=== PATIENT | female | born 1975 | race Caucasian/White ===

== ENCOUNTER 2019-10-08 15:04 | Emergency (ER) | payer BC ==
[2019-10-08 16:37] LABS: #Basophils 0.1 thou/uL (0.0-0.2); #Eosinphils 0.2 thou/uL (0.0-0.7); #Lymphocytes 1.4 thou/uL (1.20-3.40); #Monocytes 0.5 thou/uL (0.11-0.59); #Neutrophils 10.1 thou/uL (1.40-6.50); %Basophils 0.6 % (0.0-1.0); %Eosinophils 1.4 % (0.0-10.0); %Lymphocytes 11.4 % (21.0-51.0); %Monocytes 4.1 % (0.0-10.0); %Neutrophils 82.5 % (42.0-75.0); Hemoglobin 14.6 g/dL (12.0-16.0); Mean Corpuscular HGB CONC 33.6 g/dL (32.0-36.0); Mean Corpuscular Hemoglobin 30.9 pg (27.0-31.0); Mean Corpuscular Volume 91.9 fL (78.0-98.0); Mean Platelet Volume 8.2 fL (7.4-10.4); Platelet Count 280 thou/uL (130-400); Red Blood Cell (RBC) Count 4.74 mill/uL (4.20-5.40); White Blood Cell (WBC) Count 12.3 thou/uL (4.8-10.8)
[2019-10-08 17:00] LABS: ALT (SGPT) 60 U/L (8-55); AST (SGOT) 40 U/L (5-34); Alkaline Phosphatase 103 U/L (40-110); Anion Gap 9 mmol/L (10-20); BUN (Urea Nitrogen) 14 mg/dL (7.0-18.7); Bilirubin, Total 0.3 mg/dL (0.2-1.2); Calc. Creatinine Clearance 0 mL/min (70-130); Calcium 9.8 mg/dL (7.8-10.44); Carbon Dioxide 35 mmol/L (22-29); Chloride 102 mmol/L (98-107); Estimated GFR-MDRD 77; Globulin 2.5 g/dL (2.4-3.5); Glucose 99 mg/dL (70-105); Potassium 3.9 mmol/L (3.5-5.1); Protein, Total 7.5 g/dL (6.0-8.3); Sodium 142 mmol/L (136-145)
[2019-10-08] MEDS ORDERED: Clindamycin/D5W 900 mg/50 ml Premix Bag ONE (17:18)
[2019-10-08] MEDS ORDERED: Ketorolac Tromethamine 30 MG/ML VIAL ONE (17:18)
--- NOTE | 2019-10-08 17:19 | CT ---
CT FACIAL BONES WITH IV CONTRAST: HISTORY: Prosthetic left TMJ joint swelling and pain. Facial swelling FINDINGS: There are postop changes of bilateral TMJ replacement in good position and alignment. The facial bone s are otherwise intact. The visualized paranasal sinuses and mastoid air cells are well-aerated. No air-fluid levels are seen. No loculated fluid collection is seen in the soft tissues to suggest absce ss formation. IMPRESSION: No evidence of acute process.
[2019-10-08] MEDS ORDERED: Fentanyl 100 MCG/2 ML VIAL ONE (18:06)
[2019-10-08] MEDS ORDERED: Lorazepam 2 MG/ML VIAL ONE (18:06)
== END 2019-10-08 18:45 | disposition home or self-care (01) ==
LOC: ERS 15:04
DX: T84.098A Other mechanical complication of other internal joint prosthesis, initial encounter (principal); R22.0 Localized swelling, mass and lump, head
CPT/HCPCS: 70487; 80053; 85025; 85652; 86140; 96361; 96374; 96375; J1885; J2060; J3010; J3490

== ENCOUNTER 2019-10-09 18:30 | Observation (INO) | payer BC ==
[~2019-10-09 18:30] MED LIST: Iopamidol 370 76% 100 ML VIAL ONE
[2019-10-09 19:16] LABS: #Basophils 0.1 thou/uL (0.0-0.2); #Eosinphils 0.2 thou/uL (0.0-0.7); #Lymphocytes 1.7 thou/uL (1.20-3.40); #Monocytes 0.7 thou/uL (0.11-0.59); #Neutrophils 8.7 thou/uL (1.40-6.50); %Basophils 0.8 % (0.0-1.0); %Eosinophils 2.1 % (0.0-10.0); %Lymphocytes 14.9 % (21.0-51.0); %Monocytes 5.9 % (0.0-10.0); %Neutrophils 76.2 % (42.0-75.0); Hemoglobin 12.9 g/dL (12.0-16.0); Mean Corpuscular HGB CONC 32.8 g/dL (32.0-36.0); Mean Corpuscular Hemoglobin 30.4 pg (27.0-31.0); Mean Corpuscular Volume 92.5 fL (78.0-98.0); Mean Platelet Volume 8.1 fL (7.4-10.4); Platelet Count 251 thou/uL (130-400); RBC Distribution Width 11.2 % (11.5-14.5); Red Blood Cell (RBC) Count 4.24 mill/uL (4.20-5.40); White Blood Cell (WBC) Count 11.4 thou/uL (4.8-10.8)
[2019-10-09 19:38] LABS: ALT (SGPT) 43 U/L (8-55); AST (SGOT) 27 U/L (5-34); Albumin 4.5 g/dL (3.5-5.0); Alkaline Phosphatase 89 U/L (40-110); Anion Gap 11 mmol/L (10-20); BUN (Urea Nitrogen) 15 mg/dL (7.0-18.7); Bilirubin, Total 0.2 mg/dL (0.2-1.2); Calc. Creatinine Clearance 0 mL/min (70-130); Calcium 8.7 mg/dL (7.8-10.44); Carbon Dioxide 29 mmol/L (22-29); Chloride 103 mmol/L (98-107); Estimated GFR-MDRD 75; Globulin 2.8 g/dL (2.4-3.5); Glucose 85 mg/dL (70-105); Potassium 3.6 mmol/L (3.5-5.1); Protein, Total 7.3 g/dL (6.0-8.3); Sodium 139 mmol/L (136-145)
[2019-10-09] MEDS ORDERED: Ketorolac Tromethamine 30 MG/ML VIAL ONE (19:47)
[2019-10-09] MEDS ORDERED: Fentanyl 100 MCG/2 ML VIAL ONE ×2 (19:47→21:39)
[2019-10-09] MEDS ORDERED: Lorazepam 2 MG/ML VIAL ONE (20:58)
--- NOTE | 2019-10-09 21:39 | CT ---
CT neck with contrast: DATE: 10/09/2019 Time: 9:14 PM HISTORY: 44-year-old female with left jaw pain and swelling. Rule out abscess. FINDINGS: Bilateral metallic plates and screws throughout the bilateral mandibular rami and angles, attached to metallic prostheses replacing the bilateral mandibular condyles. Metallic artificial surfaces of bilateral glenoid fossa attached to plate and screw fixations at bilateral posterior zygomatic arches . This metallic hardware, together with dental amalgam, causes streak artifact, partially obscuring adj acent soft tissues, including portions of the bilateral parotid, overnight houseperson, and buccal, spaces, such that small abscesses could be missed. Furthermore, it is not possible to evaluate bony detail be cause of the hardware. No moderate sized or large abscess is identified. There is soft tissue edema throughout the superficial subcutaneous fat overlying the left masseter muscle, extending along the l eft platysma muscle and deep to the left platysma muscle. Other than mild edema, there is no other abnormality identified involving the parapharyngeal, submandibular, visceral, carotid, retropharyngea l, and posterior cervical, spaces. No significant cervical lymphadenopathy. Lung apices demonstrate no consolidation. Bilateral palatine tonsils are symmetrically enlarged. Normal larynx and thyroid gl and. Normal trachea. IMPRESSION: 1. 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 2. This causes significant streak artifact, limiting the sensitivity of the CT. 3. Soft tissue edema involving superficial and deep soft tissues, mostly on the left side. This could represent cellulitis. 4. No moderate sized or large abscess identified. 5. Hyperplasia of bilateral palatine tonsils..
[2019-10-09] MEDS ORDERED: Ampicillin/Sulbactam 3 GM, Admixture Fee 1 EACH in Sodium Chloride 0.9% 100 ML IVPB SCH (22:45)
--- NOTE | 2019-10-09 23:16 | PDOC.FPRHP ---
- History of Present Illness Chief Complaint: jaw pain History of Present Illness: Ms. Suresh is a 44yoF who presents to the second time in 2 days to the ED for left jaw pain. The pain started on Sunday. The pain came on suddenly and was significantly worsened with chewing, stating that chewing was sending electrical shocks. She noted that her jaw began swelling. She states it is painful to open her mouth as well. She has tried her home norco and it has not relieved her pain. She has a significant history of TMJ. She has had bilateral jaw replacements with several surgeries on each side. However, she has never had an infection in her jaw like this before. ED Course: Unasyn, fentanyl, toradol, 1L NS - Allergies/Adverse Reactions Allergies Allergy/AdvReac Type Severity Reaction Status Date / Time erythromycin base Allergy Verified 10/10/19 01:16 morphine Allergy Verified 10/10/19 01:16 promethazine [From Phenergan] Allergy Verified 10/10/19 01:16 - Home Medications Medication Instructions Recorded Confirmed Type Diclofenac Sodium 50 mg PO BID 10/09/19 10/09/19 History HYDROcodone/Acetaminophen [[place] 1 each PO Q6HR PRN 10/09/19 10/09/19 History 10-325 Tablet] Ibuprofen [Motrin] 800 mg PO TID 10/09/19 10/09/19 History Zolpidem Tartrate [Ambien] 2 tab PO HS 10/09/19 10/10/19 History - History PMHx: TMJ PSHx: Bilateral jaw replacement (started in late ) ([facility] [place] Laure Peck, [facility] [place]) Bilateral hip replacements - has had 6 hip surgeries FHx: Adopted - no known family history Social: Denies alcohol, tobacco or illicit drug use. - Review of Systems General: denies: fever/chills, weight/appetite/sleep changes, night sweats, fatigue Eyes: denies: eye pain, vision changes ENT: denies: nasal congestion, rhinorrhea Respiratory: denies: cough, congestion, shortness of breath Cardiovascular: denies: chest pain, palpitation, edema Gastrointestinal: denies: nausea, vomiting, diarrhea, constipation, abdominal pain Genitourinary: denies: incontinence, dysuria, polyuria Skin: denies: rashes, lesions, jaundice Musculoskeletal: reports: pain, tenderness, swelling (jaw) Neurological: denies: numbness, syncope, seizure, weakness - Vital signs 10/10/19 01:00 Temperature 98.1 F Pulse Rate 79 Blood Pressure 115/78 [Supine] Respiratory 18 Rate O2 Sat by Pulse 100 Oximetry Oxygen Delivery Room Air Method - Physical Exam Constitutional: NAD, awake, alert and oriented, well developed HEENT: normocephalic and atraumatic, PERRLA, EOMI, conjunctiva clear, grossly normal vision, grossly normal hearing, MMM Neck: supple, trachea midline Heart: RRR, normal S1/S2, no murmurs/rubs/gallops Lungs: CTAB, no respiratory distress, good air movement, no rales/rhonchi, no wheezing Abdomen: soft, non-tender, bowel sounds present Musculoskeletal: normal structure, normal tone Neurological: no focal deficit, CN II-XII intact Skin: good turgor, capillary refill <2 seconds -Skin: Prominent area of erythema and warmth to the left side of face and mandible. Heme/Lymphatic: no unusual bruising or bleeding, no purpura, no petechia Psychiatric: normal mood and affect, good judgment and insight, intact recent and remote memory FMR H&P: Results - Labs Result Diagrams: 10/10/19 05:08 10/10/19 05:08 Lab results: WBC 11.4 thou/uL (4.8-10.8) H 10/09/19 19:00 Hgb 12.9 g/dL (12.0-16.0) 10/09/19 19:00 Hct 39.2 % (36.0-47.0) 10/09/19 19:00 MCV 92.5 fL (78.0-98.0) 10/09/19 19:00 Plt Count 251 thou/uL (130-400) 10/09/19 19:00 Neutrophils % 76.2 % (42.0-75.0) H 10/09/19 19:00 Sodium 139 mmol/L (136-145) 10/09/19 19:00 Potassium 3.6 mmol/L (3.5-5.1) 10/09/19 19:00 Chloride 103 mmol/L (98-107) 10/09/19 19:00 Carbon Dioxide 29 mmol/L (22-29) 10/09/19 19:00 BUN 15 mg/dL (7.0-18.7) 10/09/19 19:00 Creatinine 0.82 mg/dL (0.6-1.1) 10/09/19 19:00 Glucose 85 mg/dL (70-105) 10/09/19 19:00 Calcium 8.7 mg/dL (7.8-10.44) 10/09/19 19:00 Total Bilirubin 0.2 mg/dL (0.2-1.2) 10/09/19 19:00 AST 27 U/L (5-34) 10/09/19 19:00 ALT 43 U/L (8-55) 10/09/19 19:00 Alkaline Phosphatase 89 U/L (40-110) 10/09/19 19:00 Serum Total Protein 7.3 g/dL (6.0-8.3) 10/09/19 19:00 Albumin 4.5 g/dL (3.5-5.0) 10/09/19 19:00 - Radiology Interpretation CT scan - head Status: report reviewed by me (IMPRESSION: 1. 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 2. This causes significant streak artifact, limiting the sensitivity of the CT. 3. Soft tissue edema involving superficial and deep soft tissues, mostly on the left side. This could represent cellulitis. 4. No moderate sized or large abscess identified. 5. Hyperplasia of bilateral palatine tonsils..) FMR H&P: A/P - Plan Facial cellulitis - h/o TMJ joint replacement surgery bilaterally. - WBC 11.4 - CT limited by hardware, no large abscess appreciable - Was given Unasyn in the ED. The pharmacy is out of this antibiotic, we will continue coverage with Zosyn until further recommendations by OMFS are made. - ED consulted ENT electronic test technician and they recommended - Soft tissue US ordered Chronic pain - On norco at home - Allergic to morphine - Fentanyl and Toradol for pain control overnight Fluids: NS 125ml/hr Code: Full VTE PPx: SCDs Dispo: inpatient, LOS >48hrs expected FMR H&P: Upper Level - Plan Date/Time: 10/09/19 9532 PCP: [facility] HPI: This is a 44 yo F who comes in to the ED for the 2nd time for L sided facial swelling. She says this started about 2 days ago and has gotten increasingly painful. She is still able to tolerate PO but she states opening her mouth does cause her to have increased pain. She has had chills, but denies fevers. She has tried her norco at home but this has not helped with the pain. She denies sore throat, difficulty swallowing, or changes to her voice. She denies neck stiffness. She has had multiple surgeries on the TMJ bilaterally, with her OMFS surgeon Dr. Peck in [place]. REVIEW OF SYSTEMS: Gen: see hpi Neuro: denies headache Eyes: no visual changes ENT: see hpi Resp: denies cough, SOB Card: denies murmurs, rubs, gallups GI: no N/V/D, no abdominal pain Heme: no easy bruising/bleeding, no blood thinners Skin: no rash, no erythema PHYSICAL EXAMINATION: General: NAD, alert and oriented x3 HEENT: 5x5 area of induration at angle of L jawline, no isaias erythema, mild tenderness to palpation, warm to touch, patient able to open her mouth 5-6cm, no tonsillar hypertrophy appreciated on physical exam but difficult to examine Neck: Supple. Full ROM. Heart/Cardiovascular System: RRR, Cap refill < 3 seconds, no rub, no murmur Lungs/Respiratory System: CTA-B, no resp distress Abdomen/Gastro-Intestinal System: no abdominal tenderness, normal bowel sounds Extremities: Warm extremities. No cyanosis or edema Neuro: No gross deficits appreciated. CN 2-12 grossly intact Psychiatry: Awake, Alert and cooperative with exam Skin: No lesions, rashes, or ulcers Musculoskeletal: Full ROM A/P: # L facial cellulitis s/p TMJ replacement - WBC 11.4, CT scan limited by hardware, no moderate/large abscess, small abscess cannot be ruled out - Hospital out of Unasyn, will cont with Zosyn - Soft tissue US ordered - ENT called by ED, recd abx and pain control, appreciate ENT recs # Chronic pain - On norco at home - Allergic to morphine, will give toradol and fentanyl for now Fluids: NS 125ml/hr Code status: full PPx: scd Dispo: inpatient Addendum - Attending - Attending Attestation Date/Time: 10/10/19 5659 I personally evaluated the patient and discussed the management with Dr. rAreguin/ Moise. I agree with the History, Examination, Assessment and Plan documented above with any addition or exceptions noted below. Patient with history of multiple jaw procedures here with pain and concern for cellulitis versus abscess in the jaw. Continue abx for now by IV, will consult OMFS and go from there. Possible quick turnaround as the patient is well appearing and is only having some pain.
[2019-10-10] MEDS ORDERED: Acetaminophen 325 MG TAB PO PRN (00:02)
[2019-10-10] MEDS ORDERED: Ondansetron PF 4 MG/2 ML Vial IVP PRN (00:02)
[2019-10-10] MEDS ORDERED: diphenhydrAMINE 25 MG CAP PO PRN (00:06)
[2019-10-10] MEDS ORDERED: Fentanyl 100 MCG/2 ML VIAL SLOW IVP PRN (00:08)
[2019-10-10] MEDS ORDERED: Ketorolac Tromethamine 30 MG/ML VIAL IVP SCH (00:30)
[2019-10-10 01:15] VITALS: BMI 17.9
[2019-10-10] MEDS: Lactated Ringer's 1,000 ML IV SCH ×3 (01:36→17:25)
[2019-10-10] MEDS ORDERED: Zolpidem Tartrate 5 MG TAB PO SCH ×3 (01:45→21:00)
[2019-10-10] MEDS ORDERED: Fentanyl 100 MCG/2 ML VIAL SLOW IVP SCH (03:15)
[2019-10-10] MEDS: Piperacillin/Tazobactam 3.375 GM in Sodium Chloride 0.9% 100 ML IVPB SCH ×3 (05:26→17:44)
[2019-10-10 05:28] LABS: #Basophils 0.1 thou/uL (0.0-0.2); #Eosinphils 0.2 thou/uL (0.0-0.7); #Lymphocytes 1.4 thou/uL (1.20-3.40); #Monocytes 0.6 thou/uL (0.11-0.59); #Neutrophils 5.5 thou/uL (1.40-6.50); %Basophils 0.8 % (0.0-1.0); %Eosinophils 2.6 % (0.0-10.0); %Lymphocytes 17.6 % (21.0-51.0); %Monocytes 7.3 % (0.0-10.0); %Neutrophils 71.6 % (42.0-75.0); Mean Corpuscular HGB CONC 33.4 g/dL (32.0-36.0); Mean Corpuscular Hemoglobin 30.9 pg (27.0-31.0); Mean Corpuscular Volume 92.6 fL (78.0-98.0); Mean Platelet Volume 8.2 fL (7.4-10.4); Platelet Count 180 thou/uL (130-400); RBC Distribution Width 11.1 % (11.5-14.5); Red Blood Cell (RBC) Count 3.56 mill/uL (4.20-5.40); White Blood Cell (WBC) Count 7.6 thou/uL (4.8-10.8)
[2019-10-10 05:47] LABS: Anion Gap 8 mmol/L (10-20); BUN (Urea Nitrogen) 10 mg/dL (7.0-18.7); Calc. Creatinine Clearance 75 mL/min (70-130); Calcium 7.8 mg/dL (7.8-10.44); Carbon Dioxide 26 mmol/L (22-29); Chloride 106 mmol/L (98-107); Estimated GFR-MDRD Greater than 90; Glucose 81 mg/dL (70-105); Potassium 3.6 mmol/L (3.5-5.1); Sodium 136 mmol/L (136-145)
[2019-10-10] MEDS ORDERED: Ampicillin/Sulbactam 3 GM in Sodium Chloride 0.9% 100 ML IVPB SCH (06:00)
[2019-10-10] MEDS: Fentanyl 100 MCG/2 ML VIAL SLOW IVP PRN ×4 (08:15→20:53)
--- NOTE | 2019-10-10 09:25 | ULT ---
EXAM: Soft tissue ultrasound left submandibular INDICATIONS: Evaluate for abscess COMPARISON: None. FINDINGS: Multiple lymph nodes are seen in the left submandibular region. Left parotid gland appears prominent. No evidence of fluid collection or abscess. IMPRESSION: No evidence of fluid collection or abscess.
[2019-10-10] MEDS ORDERED: Dexamethasone 20 MG/5 ML VIAL SLOW IVP SCH (13:00)
[2019-10-10] MEDS: Dexamethasone 4 mg/ml Vial SLOW IVP SCH ×2 (15:13→20:42)
[2019-10-10] MEDS: Ketorolac Tromethamine 30 MG/ML VIAL IVP PRN (15:14)
--- NOTE | 2019-10-10 16:50 | PDOC.BPN ---
- Brief Progress Note Spoke with Dr. Molina who also communicated with Dr. Peck, patient's primary OMFS in [place]. Recommend outpatient treatment with Augmentin 875 mg BID and flagyl 500 mg TID for 10 days. Based on evaluation and discussion, no surgical intervention necessary at this time. No evidence of abscess on CT or ultrasound. Due to hardware, the interference on CT makes it difficult to adequately assess parotid gland. Both Dr. Molina and Dr. Peck recommend close outpatient follow up with ENT to re-evaluate. Patient lives in [place] , so ENT follow up may be easier closer to her home. If parotitis, likely antibiotics will help. If no resolution of symptoms approaching 10 days of antibiotics, recommend follow up with Dr. Peck in [place] to further evaluate hardware. Patient not comfortable with going home today as she lives 2 hours away and does not want to end up back in ED. Discussed staying in the hospital for the night and completing a full 24 hours of IV antibiotics, along with decadron to help with inflammation as recommended by [facility] (decadron 8 mg IV q8h x3). Plan for d/c home tomorrow with 10 day course of antibiotics and close ENT follow up. Patient agreeable with plan. Jaki Maurice, DO PGY-3
[2019-10-11] MEDS: Ketorolac Tromethamine 30 MG/ML VIAL IVP PRN ×2 (00:15→08:36)
[2019-10-11] MEDS: Piperacillin/Tazobactam 3.375 GM in Sodium Chloride 0.9% 100 ML IVPB SCH ×2 (00:22→05:23)
[2019-10-11] MEDS ORDERED: Zolpidem Tartrate 5 MG TAB PO SCH (00:30)
[2019-10-11] MEDS: Fentanyl 100 MCG/2 ML VIAL SLOW IVP PRN ×2 (02:04→05:34)
[2019-10-11] MEDS: Dexamethasone 4 mg/ml Vial SLOW IVP SCH (05:22)
--- NOTE | 2019-10-11 06:25 | PDOC.FM ---
- Subjective Subjective: 44 yo female seen at bedside this AM. Patient reports great improvement in symptoms. She notes warmth to her left cheek area, but can open her mouth more today. She notes a mechanical soft diet has gone well. No other complaints. - Objective Vital Signs & Weight: Vital Signs (12 hours) Temp Pulse Resp BP Pulse Ox 10/11/19 04:00 98.0 F 71 20 94/63 95 10/11/19 00:00 98.3 F 69 20 118/70 93 L 10/10/19 20:00 98.3 F 88 20 106/71 96 Weight Admit Weight 44.452 kg Weight 44.452 kg I&O: 10/09/19 10/10/19 10/11/19 06:59 06:59 06:59 Intake Total 675 3508 Balance 675 3508 Result Diagrams: 10/10/19 05:08 10/10/19 05:08 Phys Exam - Physical Examination Constitutional: NAD HEENT: moist MMs Warmth over right mandible. Decreased ROM with mouth opening Respiratory: no wheezing, clear to auscultation bilateral Cardiovascular: RRR, no significant murmur Gastrointestinal: soft, non-tender, no distention, positive bowel sounds Musculoskeletal: no edema, pulses present Neurological: non-focal, moves all 4 limbs Psychiatric: normal affect, A&O x 3 Skin: no rash, cap refill <2 seconds Dx/Plan (1) Facial cellulitis Code(s): L03.211 - CELLULITIS OF FACE Status: Acute (2) Chronic pain Code(s): G89.29 - OTHER CHRONIC PAIN Status: Acute - Plan Plan: Facial cellulitis - h/o TMJ joint replacement surgery bilaterally. - CT limited by hardware, no large abscess appreciable - OMFS recommended no intervention. Will be discharged on 10 days of antibiotics Chronic pain - On norco at home - Allergic to morphine - Fentanyl and Toradol for pain control overnight Code: Full VTE PPx: SCDs Disposition: Anticipate discharge home today with follow up with OMFS in near future. Addendum - Attending - Attending Attestation Date/Time: 10/11/19 5620 I personally evaluated the patient and discussed the management with Dr. Herman. I agree with the History, Examination, Assessment and Plan documented above with any addition or exceptions noted below.
[2019-10-11 07:41] VITALS: BP 115/76; TEMP 98.2
--- NOTE | 2019-10-13 13:54 | DIS ---
DATE OF ADMISSION: 10/10/2019 DATE OF DISCHARGE: 10/11/2019 RESIDENT: Neymar Herman MD ADMITTING ATTENDING: Griffin Urban MD DISCHARGE ATTENDING: Angus Bernstein MD [place] [facility]. PROCEDURES: 1. On 10/09/2019, the patient underwent a soft tissue neck CT that showed status post bilateral total joint replacement arthroplasty of the temporomandibular joints, soft tissues mostly on left side could represent cellulitis. No moderate size or large abscess identified. Hyperplasia of bilateral palatine tonsils. 2. On 10/10/2019, the patient underwent a soft tissue ultrasound of her left mandible shows no evidence of fluid collection or abscess. PRIMARY DIAGNOSES: 1. Facial cellulitis. 2. Chronic pain. DISCHARGE MEDICATIONS: 1. Ambien 10 mg p.o. h.s. 2. Ibuprofen 800 mg p.o. t.i.d. 3. Diclofenac 50 mg p.o. b.i.d. 4. [place] 10/325 mg one tablet p.o. q.6 hours p.r.n. 5. Acetaminophen 650 mg p.o. q.4 hours p.r.n. 6. Augmentin 875/125 one tablet p.o. b.i.d. for 10 days. 7. Benadryl 25 mg p.o. q.6 hours p.r.n. 8. Metronidazole 500 mg p.o. t.i.d. for 10 days. DISCONTINUED MEDICATIONS: None. HISTORY OF PRESENT ILLNESS AND HOSPITAL COURSE: The patient is a 44-year-old female presents for second time in 2 days to the ED for left jaw pain. The patient reports the pain started on the preceding Sunday. The patient reports the pain suddenly was significantly worse with chewing. The patient then notes that her left jaw began swelling. She reports that it is painful to open her mouth during this time too. The patient does have home [place] has not relieved her pain. The patient reports no other symptoms like this before. During this hospitalization, the patient remained afebrile. During this hospitalization, had normotensive vital signs and no other abnormalities. The patient did have a white blood cell count of 11.4 on admission that trended down to 7.6. No other lab abnormalities. The patient was seen by the [facility] [place] while in the hospital, who contacted her personal OMFS surgeon at [place], Dr. Peck. Recommendations of the Augmentin 875 mg b.i.d. and Flagyl 500 mg t.i.d. for 10 days came from both OMFS surgeons. The patient will have a close followup with them as an outpatient. Otherwise, during this hospitalization, she continued to report improved pain control. No fevers and improvement of her left jaw swelling. DISPOSITION: Stable. DISCHARGE INSTRUCTIONS: 1. Location: She will be discharged home in the care of herself. 2. Diet will be as tolerated with mechanical soft advancement as tolerated. 3. Activity will be as tolerated. No restrictions. 4. Followup will be with her primary OMFS surgeon, Dr. Peck in the next 7 to 10 days as well as her primary care provider in the next 3 days. Job ID: [id number] [id number]
== END 2019-10-11 11:30 | disposition home or self-care (01) ==
LOC: ERS 18:30 → INTOOBSV 10-10 00:52 → T4-B 10-10 00:52 → T4-A 10-10 01:16
PROVIDERS: ADMIT Student in an Organized Health Care Education/Training Program; ATTEND Student in an Organized Health Care Education/Training Program
DX: L03.211 Cellulitis of face (principal); J35.1 Hypertrophy of tonsils; G89.29 Other chronic pain; Z88.5 Allergy status to narcotic agent; Z88.1 Allergy status to other antibiotic agents; Z88.8 Allergy status to other drugs, medicaments and biological substances; Z79.899 Other long term (current) drug therapy; Z96.60 Presence of unspecified orthopedic joint implant
CPT/HCPCS: 36415; 70491; 76536; 80048; 80053; 85025; 96361; 96365; 96366; 96367; 96375; 96376; G0378; J0295; J1100; J1885; J2060; J2543; J3010; J3490; Q9967

== ENCOUNTER 2024-07-27 16:15 | Emergency (ER) | payer BC ==
[~2024-07-27 16:15] MED LIST changes: -Iopamidol 370 76% 100 ML VIAL ONE; +Iopamidol-370 76% 500 ML MDV (1 ML CHARGE) ONE
[2024-07-27 18:29] LABS: #Basophils 0.07 10x3/uL (0.0-0.2); %Basophils 0.7 % (0.0-1.0); %Eosinophils 1.1 % (0.0-10.0); %Lymphocytes 21.7 % (21.0-51.0); %Monocytes 7.6 % (0.0-10.0); %Neutrophils 68.4 % (42.0-75.0); Hematocrit 37.8 % (36.0-47.0); Hemoglobin 12.6 g/dL (12.0-16.0); Mean Corpuscular HGB CONC 33.3 g/dL (32.0-36.0); Mean Corpuscular Hemoglobin 29.4 pg (27.0-31.0); Mean Corpuscular Volume 88.3 fL (78.0-98.0); Mean Platelet Volume 11.6 fL (7.4-10.4); Platelet Count 266 10x3/uL (130-400); Red Blood Cell (RBC) Count 4.28 mill/uL (4.20-5.40)
[2024-07-27] MEDS ORDERED: Ketorolac Tromethamine 30 MG (1 mL) VIAL ONE (18:52)
[2024-07-27] MEDS ORDERED: Morphine 4 MG/ML VIAL ONE (18:52)
[2024-07-27] MEDS ORDERED: Clindamycin/D5W 900 MG in Premix 1 BAG IVPB SCH (19:00)
[2024-07-27] MEDS ORDERED: HYDROmorphone 0.5 MG/0.5 ML SYRINGE ONE ×2 (19:42→21:27)
[2024-07-27 20:48] LABS: ALT (SGPT) 41 U/L (8-55); AST (SGOT) 67 U/L (5-34); Albumin 3.8 g/dL (3.5-5.0); Alkaline Phosphatase 52 U/L (40-110); Anion Gap 14 mmol/L (10-20); BUN (Urea Nitrogen) 11 mg/dL (9.8-20.1); Bilirubin, Total 0.3 mg/dL (0.2-1.2); Calc. Creatinine Clearance 0 mL/min (70-130); Calcium 8.6 mg/dL (7.8-10.44); Carbon Dioxide 22 mmol/L (22-29); Chloride 111 mmol/L (98-107); Estimated GFR 92; Globulin 2.3 g/dL (2.4-3.5); Glucose 80 mg/dL (70-105); Potassium 3.8 mmol/L (3.5-5.1); Protein, Total 6.1 g/dL (6.0-8.3); Sodium 143 mmol/L (136-145)
== END 2024-07-27 22:05 | disposition home or self-care (01) ==
LOC: ERS 16:15
DX: K11.20 Sialoadenitis, unspecified (principal); Z79.899 Other long term (current) drug therapy
CPT/HCPCS: 36415; 70491; 80053; 85025; 96374; 96375; 96376; J1170; J1885; J2272; J3490; Q9967